=== PATIENT | female | born 1970 | race Caucasian/White ===

== ENCOUNTER 2018-12-04 22:56 | Emergency (ER) | payer MEDICARE ==
[~2018-12-04] VITALS: Ht 157.5 cm; Wt 74.8 kg
--- OUTSIDE RECORDS SUMMARY | 2018-12-04 22:58 | XMS REPORT ---
Author Author [facility] Address Unknown Phone Unavailable Care Team Providers Care Automation Controls Specialist Name Role Phone Unavailable Unavailable Problems This patient has no known problems. Allergies, Adverse Reactions, Alerts This patient has no known allergies or adverse reactions. Medications This patient has no known medications.
--- OUTSIDE RECORDS SUMMARY | 2018-12-04 22:58 | XMS REPORT | Clinical Summary ---
Author Author [facility] Address Unknown Phone Unavailable Care Team Providers Care Glass Vial Filler Name Role Phone uYn Benton MD PCP Allergies Comments Active Allergy Reactions Severity Noted Date Adhesive Tape Rash Low 01/22/2013 Medications End Date Status Medication Sig Dispensed Refills Start Date Active diazepam (VALIUM) 10 MG Take 10 mg by 0 tablet mouth every 6 (six) hours as needed . Active lansoprazole (PREVACID) Take 30 mg by 0 30 MG capsule mouth 2 (two) times daily. Active escitalopram oxalate Take 10 mg by 0 (LEXAPRO) 10 MG tablet mouth daily. Active lisdexamfetamine Take 30 mg by 0 (VYVANSE) 30 MG capsule mouth as needed . Active asenapine (SAPHRIS, BLACK Place 10 mg 0 FENTON,) 10 mg Subl under the tongue daily. Active acetaminophen-codeine Take 1 tablet 0 (TYLENOL #3) 300-30 mg by mouth per tablet every 4 (four) hours as needed for Pain. Active ergocalciferol Take 50,000 0 (ERGOCALCIFEROL) 50,000 Units by unit capsule mouth once a week. Active Problems Problem Noted Date Breast cancer 08/29/2016 Social History Date Tobacco Use Types Packs/Day Years Used Current Every Day Smoker 1 30 Smokeless Tobacco: Never Used Tobacco Cessation: Counseling Given: Yes Alcohol Use Drinks/Week oz/Week Comments No Sex Assigned at Date Recorded Not on file Industry Job Start Date Occupation Not on file Not on file Not on file Travel End Travel History Travel Start No recent travel history available. Last Filed Vital Signs Not on file Plan of Treatment Not on file Implants Device Identifier Shelf Expiration Date Model / Serial / Lot Implanted Type Area Manufactur er 07/18/2013 350-6001BC / [id number] / [id number] Mammary Pros,Memorygel Smooth Round Plastics Right: Breast MENTOR Mod Plus Prof 600cc - [id number] [place] Implanted: Qty: 1 on 02/02/2013 by Alistair Martin MD 07/25/2021 350-6004BC / [id number] / [id number] Imp Mamm Smooth Rnd Hi Gel 600 Plastics Left: Breast MENTOR:AES 350-6004bc - [id number] THETICS Implanted: Qty: 1 on 08/29/2016 by Taco Valladares MD 02/29/2020 350-6004BC / [id number] / [id number] Imp Mamm Smooth Rnd Hi Gel 600 Plastics Right: Breast MENTOR:AES 350-6004bc - [id number] THETICS Implanted: Qty: 1 on 08/29/2016 by Taco Valladares MD 11/18/2019 EI-5200 / / [id number] Epifix Injectable 160mg Ei-5200 - Tissue Abdomen MIMEDX [id number] [employer] Implanted: Qty: 1 on 03/27/2017 by Taco Mabry MD 11/18/2019 EI-5200 / / [id number] Epifix Injectable 160mg Ei-5200 - Tissue Abdomen MIMEDX [id number] [employer] Implanted: Qty: 1 on 03/27/2017 by Taco Mabry MD Results Not on fileafter 12/03/2017 Insurance Payer Benefit Subscriber ID Type Phone Address Plan / Group [facility] xxxxxxxxxxx MEDICARE ADV Advance Directives For more information, please contact: [facility] [address] [place] [address] Date Inactivated Comments Code Status Date Activated 03/27/2017 10:01 PM Full Code 03/27/2017 9:42 AM This code status was determined by: Patient 08/29/2016 3:49 PM Full Code 08/29/2016 7:00 AM This code status was determined by: Patient
--- OUTSIDE RECORDS SUMMARY | 2018-12-04 22:58 | XMS REPORT | Clinical Summary ---
Author Author [facility] Address Unknown Phone Unavailable Care Team Providers Care Reverse Engineer Name Role Phone Jamie Lopez MD PCP Allergies Comments Active Allergy Reactions Severity Noted Date Adhesive Tape-Silicones Rash Low 10/10/2015 Patient states that tape causes blistering only if worn for a long period of time---prefers perforated tape Tapentadol Dermatitis, High 10/10/2015 Rash Medications End Date Status Medication Sig Dispensed Refills Start Date Active lansoprazole (PREVACID) Take 30 mg by 0 30 MG capsule mouth daily. Active pravastatin (PRAVACHOL) Take 20 mg by 0 20 MG tablet mouth nightly. Active escitalopram (LEXAPRO) 10 Take 10 mg by 0 MG tablet mouth daily. Active fenofibrate (TRICOR) 160 Take 160 mg 0 MG tablet by mouth daily. Active promethazine (PHENERGAN) Take 25 mg by 0 25 MG tablet mouth every 6 (six) hours as needed for nausea or vomiting. Active asenapine (SAPHRIS) 5 mg Take 5 mg by 0 tablet, sublingual mouth nightly. Active Problems Problem Noted Date Hyperlipidemia 02/28/2016 Bipolar affective disorder, currently depressed, moderate 07/26/2015 Major depressive disorder, recurrent episode, moderate 07/26/2015 Nonalcoholic steatohepatitis (BEAR) 07/26/2015 Gastroesophageal reflux disease without esophagitis 06/02/2015 Type 2 diabetes mellitus 06/02/2015 Diabetic peripheral neuropathy 12/31/2014 Morbid obesity 06/11/2014 History of malignant neoplasm of breast 08/04/2013 Retinal venous tortuosity 06/16/2013 Fatigue 10/24/2012 Muscle pain 01/02/2012 Depression Overview: BiPolar Encounters Care Team Description Date Type Specialty Laura Pham Bariatric Surgery follow Up 04/16/2018 Documentation Weight Management after 12/03/2017 Family History Medical History Relation Name Comments Diabetes Father Heart disease Father Hypertension Father Heart disease Mother Stroke Mother Relation Name Status Comments Father Mother Social History Date Tobacco Use Types Packs/Day Years Used Started: 09/30/1987 Current Every Day Smoker Cigarettes 0.5 28 Smokeless Tobacco: Current User Tobacco Cessation: Ready to Quit: No; Counseling Given: Yes Comments: last one last night Alcohol Use Drinks/Week oz/Week Comments No Sex Assigned at Date Recorded Not on file Industry Job Start Date Occupation Not on file Not on file Not on file Travel End Travel History Travel Start No recent travel history available. Last Filed Vital Signs Not on file Plan of Treatment Health Maintenance Due Date Last Done Comments DIABETIC RETINAL EYE EXAM 1972 DIABETIC FOOT EXAM 1982 URINE MICROALBUMIN 1982 INFLUENZA VACCINE 12/18/2018 01/16/2013 Implants Device Identifier Shelf Expiration Date Model / Serial / Lot Implanted Type Area Manufactur er 02/16/2018 [id number] / [id number] / [id number] Stapler Surgcl End[facility] [place] [facility] N/A: Stomach ETHICON Flex 60 Endoscpc - [id number] - [id number] Implants; INC Implanted: Qty: 2 on 10/10/2015 by Expand[employer]; Sony Leary MD Extenders; Surgical Wires 07/17/2018 [id number] / [id number] / [id number] Stapler Surgcl Endopath [place] [facility] N/A: Stomach ETHICON Flex 60 Endoscpc - [id number] - [id number] Implants; INC Implanted: Qty: 1 on 10/10/2015 by Expanders; Sony Leary MD Extenders; Surgical Wires 06/19/2018 [id number] / [id number] / [id number] Stapler Surgcl Endopath [place] [facility] N/A: Stomach ETHICON Flex 60 Endoscpc - [id number] - [id number] Implants; INC Implanted: Qty: 1 on 10/10/2015 by [employer]; Sony Leary MD Extenders; Surgical Wires 11/16/2017 [id number] / [id number] / [id number] Stapler Surgcl [facility] [place] [facility] N/A: Stomach ETHICON Flex 60 Endoscpc - [id number] - [id number] Implants; INC Implanted: Qty: 1 on 10/10/2015 by [employer]; Sony Leary MD Extenders; Surgical Wires 05/19/2018 [id number] / [id number] / [id number] Stapler Surgcl [facility] [place] [facility] N/A: Stomach W L GORE Flex 60 Endoscpc - [id number] - [id number] Implants; Implanted: Qty: 1 on 10/10/2015 by [employer]; Sony Leary MD Extenders; Surgical Wires Results Not on fileafter 12/03/2017 Insurance Type Payer Benefit Subscriber ID Effective Phone Address Plan / Dates Group [facility] [employer] [employer] xxxxxxxxxx 2014- ADVANTAGE Present [facility] Advance Directives Patient has advance care planning documents on file. For more information, ben e contact: Terry Scruggs [address] [place] [address]
[2018-12-04] MEDS ORDERED: HYDROCODONE/APAP 10MG-325MG TAB PO ONE (23:45)
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
== END 2018-12-05 01:03 | disposition home or self-care (01) ==
LOC: ER 22:56
DX: S52.572A Other intraarticular fracture of lower end of left radius, initial encounter for closed fracture (principal); S52.612A Displaced fracture of left ulna styloid process, initial encounter for closed fracture; W17.89XA Other fall from one level to another, initial encounter; Y92.488 Other paved roadways as the place of occurrence of the external cause; F32.9 Major depressive disorder, single episode, unspecified; E78.5 Hyperlipidemia, unspecified; Z85.89 Personal history of malignant neoplasm of other organs and systems; F17.210 Nicotine dependence, cigarettes, uncomplicated
CPT/HCPCS: 99283